=== PATIENT | male | born 1935 | race Caucasian/White ===

== ENCOUNTER 2022-08-30 14:19 | Inpatient (IN) | payer OTHER ==
[~2022-08-30] VITALS: Ht 182.9 cm; Wt 95.3 kg
[2022-08-30] MEDS ORDERED: GLUMETZA500 MG (14:33)
[2022-08-30] MEDS ORDERED: KAPSPARGO SPRIN25 MG PO (14:33)
--- NOTE | 2022-08-30 14:33 | NUR ---
SE RECIBE PTE MASCULINO DE 87 ANOS AELRTA Y ORIENTADAO X3 QUIEN AL [place] REFIERE SOB RO NO REFIERE DOLOR DE PECHO AL [place] PTE REFIERE ACIDEZ Y MOLESTIA EN AREA ABDOMINAL. SE MONITOREAN S/V Y PTE AL MOMENTO SPO2 AL 92%. PTE SE UBICA EN SECCION K Y SE CONECTA A MONITOR CARDIACO MANUEL PTE BAJO OBSERBACION POR CAMBIO EN PIERCE CONDICION.
--- NOTE | 2022-08-30 15:44 | NUR ---
EVALUA PTE. SE EDUCA SOBRE TX MEDICO EL CUAL REFIERE COMPRENDER. SE REALIZAN MUESTRAS DE LABORATORIO BAJO MEDIDAS ASEPTICAS. SE ADMINISTRA MEDICAMENTO LEIGHA ORDEN MEDICA. SE NOTIFICA ABG Y TERAPIA RESPIRATORIA A . SE COORDINAN COLTON X. PTE MANEJADO POR .
--- NOTE | 2022-08-30 16:00 | NUR ---
PACIENTE ES CONECTADO A MONITOR CARDIACO Y OXIMETRIA DE PULSO.
--- NOTE | 2022-08-30 16:00 | NUR ---
SE COLOCA CANULA NASAL A 3LT, PACIENTE SAT 98%.
== END 2022-09-03 11:47 | disposition home or self-care (01) | DRG 193 ==
LOC: ER 14:19 → MEDI 19:25
PROVIDERS: ADMIT Internal Medicine; ATTEND Internal Medicine
PROC: B24BZZZ Ultrasonography of Heart with Aorta (ICD-10-PCS; principal; 2022-08-30)
PROC: BW24ZZZ Computerized Tomography (CT Scan) of Chest and Abdomen (ICD-10-PCS; 2022-08-30)
PROC: 4A12X4Z Monitoring of Cardiac Electrical Activity, External Approach (ICD-10-PCS; 2022-08-30)
DX: J18.9 Pneumonia, unspecified organism (principal); I50.23 Acute on chronic systolic (congestive) heart failure; I13.0 Hypertensive heart and chronic kidney disease with heart failure and stage 1 through stage 4 chronic kidney disease, or unspecified chronic kidney disease; N17.9 Acute kidney failure, unspecified; J44.1 Chronic obstructive pulmonary disease with (acute) exacerbation; I50.9 Heart failure, unspecified; E11.65 Type 2 diabetes mellitus with hyperglycemia; E11.22 Type 2 diabetes mellitus with diabetic chronic kidney disease; N18.30 Chronic kidney disease, stage 3 unspecified; D63.1 Anemia in chronic kidney disease; Z20.822 Contact with and (suspected) exposure to COVID-19; I25.10 Atherosclerotic heart disease of native coronary artery without angina pectoris; Z79.4 Long term (current) use of insulin; Z95.0 Presence of cardiac pacemaker; I48.91 Unspecified atrial fibrillation; R59.0 Localized enlarged lymph nodes